=== PATIENT | male | born 1985 | race Caucasian/White ===

== ENCOUNTER 2021-11-27 12:32 | Emergency (ER) | payer SELFPAY ==
[2021-11-27 12:40] VITALS: BP 164/84; PULSE 62; RESP 16; TEMP 36.8; O2SAT 97
[2021-11-27 12:48] VITALS: BP 115/71; PULSE 62; RESP 16; O2SAT 95; O2SAT 96
--- NOTE | 2021-11-27 13:39 | ED_ITS ---
HPI - COVID General: Chief Complaint: COVID symptoms Stated Complaint: Covid symptoms Time Seen by Provider: 11/27/21 12:46 History of Present Illness: Patient is a 36-year-old male comes to the ED for recent COVID exposure. Patient denies having any current symptoms. He was exposed to a person who tested positive for COVID-19 within the last couple days. COVID 19 common symptoms: negative fever(s), chills, non-productive cough, productive cough, dyspnea, fatigue, headache(s), throat pain, nasal congestion, nausea, vomiting or diarrhea COVID 19 other sytmptoms: negative chest pain COVID Results: SARS-CoV-2 (PCR) Not detected (NOT DETECT) 11/27/21 13:12 11/27/21 Coronavirus Type 229E (PCR) Not detected (NOT DETECT) 11/27/21 13:12 11/27/21 Review of Systems Const: Denies: fever(s), chills or fatigue Eyes: Denies: change in vision or eye discomfort ENMT: Denies: throat pain, odynophagia, nasal discharge or nasal congestion Card: Denies: chest pain, palpitations, edema, swelling of feet/ankles, dyspnea on exertion or orthopnea Resp: Denies: dyspnea, productive cough or non-productive cough GI: Denies: abdominal pain, nausea, vomiting, diarrhea, constipation or hematochezia : Denies: flank pain, difficulty urinating, dysuria or hematuria Musc: Denies: neck pain, back pain or extremity swelling Skin/Breast: Denies: rash or new lesions Neuro: Denies: headache(s), numbness in extremities or weakness in extremities [facility] ED PFSH: Medical History No pertinent family history Surgical History No pertinent past surgical history Physical Exam Const: COMMON NORMALS: no acute distress, patient oriented x3, healthy appearing and alert GENERAL APPEARANCE: cooperative and comfortable HENMT: COMMON NORMALS: normocephalic HEAD & SCALP: normocephalic MOUTH: Normal oral and palatal mucosa present THROAT: posterior oropharynx normal and uvula midline Neck/C-Spine: COMMON NORMALS: supple GENERAL: Yes normal visual inspection Resp: COMMON NORMALS: normal respiratory effort, No retractions, No use of accessory muscles and clear to auscultation bilaterally AUSCULTATION: clear to auscultation bilaterally Cardio: COMMON NORMALS: regular rate, regular rhythm, S1 normal heart sound present, S2 normal heart sound present, No gallops present (Cardio), No clicks present (Cardio), No murmurs present (Cardio) and Peripheral pulses 2+ throughout RATE: regular rate RHYTHM: regular rhythm HEART SOUNDS: S1 normal heart sound present and S2 normal heart sound present PERIPHERAL PULSES: Peripheral pulses 2+ throughout GI: COMMON NORMALS: Normal to inspection, nondistended, normoactive bowel sounds present, Soft to palpation, non-tender and no masses PALPATION: Yes Soft to palpation : COMMON NORMALS: Yes no CVA tenderness BLADDER/KIDNEY EXAM: Yes no CVA tenderness Back/Pelvis: COMMON NORMALS: no CVA tenderness Extremity: COMMON NORMALS: normal to inspection Neuro: COMMON NORMALS: patient oriented x3 and moves all extremities SENSORIUM/ORIENTATION: Yes alert Skin: GENERAL SKIN EXAM: dry skin Course Vital Signs: Vital signs: Vital Signs Temperature 98.2 F 11/27/21 12:40 Pulse Rate 54 L 11/27/21 14:08 Respiratory Rate 16 11/27/21 12:48 Blood Pressure 118/74 11/27/21 14:08 Pulse Oximetry 96 11/27/21 14:08 [facility] - COVID Medical Decision Making Patient is a 36-year-old male comes to the ED after being exposed to COVID-19 positive patient. He denies any current symptoms. Vitals are stable. Exam is benign. COVID testing done and it was negative. Patient was discharged home and told to follow-up with his PCP at his next scheduled appointment. Patient understood and agreed with plan. Lab Data I reviewed the patient's lab results. Laboratory Results Coronavirus 229E (PCR) Not detected (NOT DETECT) 11/27/21 13:12 SARS-CoV-2 (PCR) Not detected (NOT DETECT) 11/27/21 13:12 SARS-CoV-2 (PCR) Not detected (NOT DETECT) 11/27/21 13:12 11/27/21 Coronavirus Type 229E (PCR) Not detected (NOT DETECT) 11/27/21 13:12 11/27/21 Discharge Plan Discharge Patient Disposition: Home Clinical Impression: Encounter for laboratory testing for COVID-19 virus Condition: Stable Discharge Orders: Discharge ED (Routine); Ordered 11/27/21 Ordered By: Tay Foster Discharge Diet: Regular Discharge Activity: Resume usual activity Activity Restrictions/Additional Instructions: Follow-up with medical provider as directed in the next 5 to 7 days reevaluation. COVID-19 test results are pending and should be back within the next couple hours. You can call [facility] later today to find out COVID-19 results. Return to the ER or your medical provider if condition worsens. Please read and understand discharge instructions. Thank you for choosing [facility] for your healthcare needs today. Please realize this is an emergency room and that we are providing you with a medical screening exam and this may not be complete and all inclusive of all the testing and or work up that you may need to determine your ailment or severity of your illness. It is very important that you follow up as instructed or that you return to the Emergency Department should you have concerns or if your condition changes or worsens in any way. Coding Level of Care Code ED [facility] Attendant for Maye Griffin
[2021-11-27 14:08] VITALS: BP 118/74; PULSE 54; O2SAT 96
[2021-11-27 15:16] LABS: Adenovirus Not Detected (NOT DETECT); Chlamydia Pneumoniae Not Detected (NOT DETECT); Coronavirus 229E,HKU1,NL63,OC4 Not Detected (NOT DETECT); Human Metapneumovirus Not Detected (NOT DETECT); Human Rhinovirus/Enterovirus Not Detected (NOT DETECT); Influenza A Not Detected (NOT DETECT); Influenza A H1 Not Detected (NOT DETECT); Influenza A H1-2009 Not Detected (NOT DETECT); Influenza A H3 Not Detected (NOT DETECT); Influenza B Not Detected (NOT DETECT); Mycoplasma Pneumoniae Not Detected (NOT DETECT); Parainfluenza Virus Type 1 Not Detected (NOT DETECT); Parainfluenza Virus Type 2 Not Detected (NOT DETECT); Parainfluenza Virus Type 3 Not Detected (NOT DETECT); Parainfluenza Virus Type 4 Not Detected (NOT DETECT); Respiratory Syncytial Virus A Not Detected (NOT DETECT); Respiratory Syncytial Virus B Not Detected (NOT DETECT); SARS-COV-2 Not Detected (NOT DETECT)
== END 2021-11-27 14:09 | disposition home or self-care (01) ==
PROVIDERS: Emergency Provider Physician Assistant
DX: Z20.822 Contact with and (suspected) exposure to COVID-19 (principal)
CPT/HCPCS: 87635; 99282

== ENCOUNTER 2021-12-02 19:45 | Emergency (ER) | payer SELFPAY ==
[2021-12-02 20:04] VITALS: BP 111/79; PULSE 73; RESP 16; TEMP 36.7; O2SAT 97
--- NOTE | 2021-12-02 20:24 | XRR_ITS ---
PROCEDURE INFORMATION: Exam: XR Chest Exam date and time: 12/02/2021 8:37 PM Age: 36 years old Clinical indication: Other: N/v; Additional info: Covid TECHNIQUE: Imaging protocol: XR of the chest. Views: 1 view. COMPARISON: No relevant prior studies available. FINDINGS: Lungs: Mildly hyperaerated lungs consistent with deep inspiratory effort vs reactive airway disease vs mild COPD . Pleural spaces: Unremarkable. No pleural effusion. No pneumothorax. Heart/Mediastinum: Unremarkable. No cardiomegaly. Bones/joints: Unremarkable. XR/XR chest 1V portable [id number] IMPRESSION: Mildly hyperaerated lungs consistent with deep inspiratory effort vs reactive airway disease vs mild COPD .
--- NOTE | 2021-12-02 20:25 | W.ED.NAVMDI ---
HPI - Nausea/Vomiting/Diarrhea General: Chief complaint: Nausea/Vomiting/Diarrhea Stated complaint: n/v blood-covid + Time Seen by Provider: 12/02/21 20:24 History of Present Illness: 36-year-old male patient comes in with nausea and vomiting since yesterday. Patient's been ill since Wednesday. Patient tested positive for COVID on Wednesday. Patient tested positive to her home test. Patient's and mother were both positive also. Patient had a test done on the but was asymptomatic at that time and was negative but his spouse was positive at that time. Patient denies any respiratory difficulty. Patient reports fever breaking this evening on the way to the ER for his nausea and vomiting. Patient states that it did not look like blood but it was dark in color so he was concerned it may be blood. Patient does report some bile in emesis. Associated nausea: Yes Associated symtoms: Reports nausea; Denies change in vision or chest pain Review of Systems General: Reports: 10 or more systems reviewed and unremarkable except in HPI and below Const: Reports: fever(s), chills and body aches Eyes: Denies: change in vision ENMT: Denies: throat pain Card: Denies: chest pain Resp: Denies: dyspnea GI: Reports: nausea and vomiting : Denies: difficulty urinating Musc: Denies: neck pain Skin/Breast: Denies: rash PFSH ED PFSH: Medical History No pertinent family history Surgical History No pertinent past surgical history Physical Exam Const: COMMON NORMALS: alert HENMT: COMMON NORMALS: Normal nasal mucous membranes and turbinates present NOSE: Normal nasal mucous membranes and turbinates present MOUTH: Normal oral and palatal mucosa present THROAT: posterior oropharynx abnormal erythema Neck/C-Spine: COMMON NORMALS: full ROM Resp: COMMON NORMALS: normal respiratory effort and clear to auscultation bilaterally AUSCULTATION: clear to auscultation bilaterally Cardio: COMMON NORMALS: regular rate and regular rhythm RATE: regular rate RHYTHM: regular rhythm GI: COMMON NORMALS: Soft to palpation AUSCULTATION: Yes normoactive bowel sounds PALPATION: Yes Soft to palpation and No Tenderness to palpation present (GI) : COMMON NORMALS: Yes no CVA tenderness BLADDER/KIDNEY EXAM: Yes no CVA tenderness Back/Pelvis: COMMON NORMALS: no CVA tenderness and thoracic and lumbar spine normal to inspection Extremity: COMMON NORMALS: no pedal edema Neuro: SENSORIUM/ORIENTATION: Yes alert Skin: COMMON NORMALS: no rashes or lesions noted GENERAL SKIN EXAM: no rashes or lesions noted Course Vital Signs: Vital signs: Vital Signs Temperature 98.0 F 12/02/21 20:04 Pulse Rate 73 12/02/21 20:04 Respiratory Rate 16 12/02/21 20:04 Blood Pressure 111/79 12/02/21 20:04 Pulse Oximetry 97 12/02/21 20:04 MDM - Nausea/Vomiting/Diarrhea Medical Decision Making 36-year-old male patient comes in with illness since Wednesday. Patient reports last 2 days he has been unable to hold down fluids or food. Patient came in tonight due to throwing up bile and concern for blood being in the emesis. On exam abdomen soft nontender. Skin is warm and dry. Vital signs are normal. Patient had a COVID test done last week when his tested positive for COVID-19 and his first test tested negative. Patient had a home test on Wednesday and when he started having symptoms he retested and was positive. Differential diagnosis includes dehydration, nausea and vomiting, COVID-19 complications. Patient was given 1 L of IV fluid with some improvement of overall symptoms. Patient was given famotidine and ondansetron for further treatment. CBC showed some elevation in hemoglobin at 18, CMP did also note some mild increase in bicarb 30. Chest x-ray was normal. Feel the patient probably has dehydration secondary to his COVID-19 gastroenteritis. Patient was rehydrated will be kept on some ondansetron for nausea and vomiting. Patient can increase his diet as he can tolerate fluids. Patient reported understanding agreed to plan. Lab Data : 12/02/21 20:30 12/02/21 20:30 Radiology Impressions Chest X-Ray 12/02/21 20:24 IMPRESSION: Mildly hyperaerated lungs consistent with deep inspiratory effort vs reactive airway disease vs mild COPD . Laboratory Results WBC 5.3 10^3/uL (4.0-10.0) 12/02/21 20:30 RBC 6.19 10^6/uL (4.1-5.3) H 12/02/21 20:30 Hgb 18.0 g/dL (11.7-16.6) H 12/02/21 20:30 Hct 50.6 % (42.0-52.0) 12/02/21 20: MCV 81.7 fl (80-94) 12/02/21 20:30 MCH 29.1 pg (28.0-34.0) 12/02/21 20: MCHC 35.6 g/dL (30.0-36.0) 12/02/21 20: RDW 11.7 % (12.1-15.1) L 12/02/21 20:30 Plt Count 158 10^3/cmm (130-400) 12/02/21 20: MPV 9.8 fL (7.4-10.4) 12/02/21 20:30 Neut % (Auto) 68.3 % 12/02/21 20: Lymph % (Auto) 16.3 % 12/02/21: [place] % (Auto) 14.8 % 12/02/21 20: Eos % (Auto) 0.2 % 12/02/21 20: Baso % (Auto) 0.2 % 12/02/21 20:30 Neut # (Auto) 3.60 10^3/uL (1.8-7.7) 12/02/21 20: Lymph # (Auto) 0.9 10^3/uL (0.8-4.8) 12/02/21 20: [place] # (Auto) 0.8 10^3/uL (0.2-0.9) 12/02/21 20: Eos # (Auto) 0.0 10^3/uL (0.0-0.8) 12/02/21 20: Baso # (Auto) 0.0 10^3/uL (0.0-0.1) 12/02/21: Nucleated RBC % (auto) 0 % 12/02/21 20: Nucleated RBCs # 0.0 /100WBC 12/02/21 20: D-Dimer 0.43 ug/mIFEU (0-0.59) 12/02/21 21:10 Sodium 140 mmol/L (136-145) 12/02/21 20:30 Potassium 3.5 mmol/L (3.5-5.1) 12/02/21 20:30 Chloride 95 mmol/L (98-107) L 12/02/21 20:30 Carbon Dioxide 30 mmol/L (22-29) H 12/02/21 20:30 Anion Gap 18.5 (5-19) 12/02/21 20:30 BUN 13 mg/dL (6-20) 12/02/21 20:30 Creatinine 1.2 mg/dL (0.7-1.2) 12/02/21 20:30 GFR Calculation 68.1 mL/min (90-130) L 12/02/21 20:30 Glucose 115 mg/dL (65-115) 12/02/21 20:30 Calculated Osmolality 291 mOsm/kg (285-295) 12/02/21 20:30 Calcium 9.3 mg/dL (8.5-10.5) 12/02/21 20:30 Total Bilirubin 0.8 mg/dL (0.15-1.2) 12/02/21 20:30 AST 29 U/L (0-40) 12/02/21 20:30 ALT 24 U/L (0-41) 12/02/21 20:30 Alkaline Phosphatase 57 IU/L (40-130) 12/02/21 20:30 C-Reactive Protein 5.9 mg/L (0.0-4.9) H 12/02/21 20:30 Total Protein 7.6 g/dL (6.6-8.7) 12/02/21 20:30 Albumin 4.7 g/dL (3.5-5.2) 12/02/21 20:30 Globulin 2.9 g/dL (1.3-4.6) 12/02/21 20:30 Discharge Plan Discharge Patient Disposition: Home Clinical Impression: Dehydration, COVID-19 Nausea & vomiting Qualifiers: Vomiting type: bilious vomiting Qualified Code(s): R11.14 - Bilious vomiting Condition: Stable Prescriptions: New ondansetron 4 mg tablet,disintegrating 4 mg PO Q8H PRN (Reason: nausea and vomiting) Qty: 10 0RF Discharge Orders: Discharge ED (Routine); Ordered 12/02/21 Ordered By: Kevon Taylor Discharge Diet: Advance as tolerated Discharge Activity: Increase activity as tolerated Patient Instructions: Dehydration (ED) Activity Restrictions/Additional Instructions: Drink frequent sips of fluid such as water, electrolyte veneg[place], or Pedialyte. This will help maintain your hydration. Increase diet slowly over the next 2 days to a bland diet such as rice, boiled chicken, apples, toast, bananas. Follow-up with primary care as needed. Return to emergency department for worsening symptoms such as increased shortness of breath, chest pain, or new concerns. Coding Level of Care Code ED Enlisted Advisor for Maye Fwd Exam Comprehensive
[2021-12-02] MEDS: sodium chloride 0.9% 1,000 ML 999 ML IV (20:38)
[2021-12-02 20:43] LABS: Basophils % 0.2 %; Eosinophils % 0.2 %; Hematocrit 50.6 % (42.0-52.0); Lymphocytes # 0.9 10^3/uL (0.8-4.8); Lymphocytes % 16.3 %; Mean Corpuscular HGB Conc 35.6 g/dL (30.0-36.0); Mean Corpuscular Hemoglobin 29.1 pg (28.0-34.0); Mean Corpuscular Volume 81.7 fl (80-94); Mean Platelet Volume 9.8 fL (7.4-10.4); Monocytes # 0.8 10^3/uL (0.2-0.9); Monocytes % 14.8 %; Neutrophils % 68.3 %; Nucleated Red Blood Cells % 0 %; Platelet Count 158 10^3/cmm (130-400); Red Blood Count 6.19 10^6/uL (4.1-5.3); Red Cell Distribution Width 11.7 % (12.1-15.1); White Blood Count 5.3 10^3/uL (4.0-10.0)
[2021-12-02] MEDS: famotidine 20 mg/2 mL INJ 40 MG IVP (21:00)
[2021-12-02 21:04] LABS: Alanine Aminotransferase 24 U/L (0-41); Albumin Level 4.7 g/dL (3.5-5.2); Alkaline Phosphatase 57 IU/L (40-130); Anion Gap 18.5 (5-19); Aspartate Amino Transferase 29 U/L (0-40); Blood Urea Nitrogen 13 mg/dL (6-20); C Reactive Protein 5.9 mg/L (0.0-4.9); Calcium 9.3 mg/dL (8.5-10.5); Carbon Dioxide 30 mmol/L (22-29); Chloride 95 mmol/L (98-107); Globulin 2.9 g/dL (1.3-4.6); Glomerular Filtration Rate 68.1 mL/min (90-130); Glucose 115 mg/dL (65-115); Osmolality Calculated 291 mOsm/kg (285-295); Potassium 3.5 mmol/L (3.5-5.1); Sodium 140 mmol/L (136-145); Total Bilirubin 0.8 mg/dL (0.15-1.2); Total Protein 7.6 g/dL (6.6-8.7)
[2021-12-02] MEDS: ondansetron 2 mg/ML SDV 2 mL 4 MG IVP (21:10)
[2021-12-02] MEDS: lactated ringers 1,000 ML 999 ML IV (21:26)
[2021-12-02 21:29] LABS: D Dimer 0.43 ug/mIFEU (0-0.59)
--- NOTE | 2021-12-02 23:04 | PC.NURSE ---
pt able to tolerated po fluids with no nausea or vomiting
== END 2021-12-02 23:08 | disposition home or self-care (01) ==
PROVIDERS: Emergency Provider Nurse Practitioner Family
DX: U07.1 COVID-19 (principal); E86.0 Dehydration; R11.14 Bilious vomiting
CPT/HCPCS: 71045; 80053; 85025; 85378; 86140; 96361; 96374; 96375; 99284; J2405; J3490; J7030